=== PATIENT | female | born 1970 ===

== ENCOUNTER 2017-04-28 15:06 | Emergency (ER) | payer SELFPAY ==
[2017-04-28 15:18] VITALS: BP 130/77; PULSE 71; RESP 17; TEMP 96.7; O2SAT 100
--- NOTE | 2017-04-28 16:45 | ED PDOC ---
HPI: Back Time Seen by Provider: 04/28/17 16:15 Chief Complaint (Nursing): Back Pain Chief Complaint (Provider): back pain History Per: Patient History/Exam Limitations: no limitations Additional Complaint(s): 47yo F in ED for eval of lower back pain x 4days states she developed back pain with mild radiation to LE. negative for: nausea/vomiting, fever, chills, abd pain, dysuria, hemturia, constipation, blood in fecal matter, MCCRAY, or abd pain. Pt admits to hx of similar in the past-state that she sustained initial injury after living Past Medical History Reviewed: Historical Data, Nursing Documentation, Vital Signs Vital Signs: Last Vital Signs Temp 96.7 F L 04/28/17 15:15 Pulse 71 04/28/17 15:15 Resp 17 04/28/17 15:15 BP 130/77 04/28/17 15:15 Pulse Ox 100 04/28/17 15:15 - Medical History PMH: No Chronic Diseases Denies: Hyperlipidemia - Family History Family History: States: Unknown Family Hx - Immunization History Hx Tetanus Toxoid Vaccination: No Hx Influenza Vaccination: No Hx Pneumococcal Vaccination: No - Home Medications Home Medications: Ambulatory Orders Medication Instructions Recorded Famotidine [Pepcid] 20 mg PO DAILY #5 tab 11/25/16 predniSONE [predniSONE Tab] 20 mg PO DAILY #12 tab 11/25/16 Cyclobenzaprine [Cyclobenzaprine 10 mg PO BID #14 tab 04/28/17 HCl] Naproxen [Naprosyn] 500 mg PO BID #30 tab 04/28/17 - Allergies Allergies/Adverse Reactions: Allergies Allergy/AdvReac Type Severity Reaction Status Date / Time ketorolac tromethamine Allergy RASH Verified 11/25/16 21:39 [From Toradol] cream cheese AdvReac RASH Uncoded 11/25/16 21:38 Review of Systems ROS Statement: Except As Marked, All Systems Reviewed And Found Negative Constitutional: Negative for: Fever, Chills Gastrointestinal: Negative for: Nausea, Vomiting, Abdominal Pain Musculoskeletal: Positive for: Back Pain Physical Exam - Reviewed Nursing Documentation Reviewed: Yes Vital Signs Reviewed: Yes - Physical Exam Appears: Positive for: Well, Non-toxic, No Acute Distress Head Exam: Positive for: ATRAUMATIC, NORMAL INSPECTION, NORMOCEPHALIC Skin: Positive for: Normal Color, Warm, DRY Cardiovascular/Chest: Positive for: Regular Rate, Rhythm Respiratory: Positive for: CNT, Normal Breath Sounds Gastrointestinal/Abdominal: Positive for: Normal Exam, Bowel Sounds, Soft. Negative for: Tenderness Back: Positive for: Vertebral Tenderness, Decreased ROM, Muscle Spasm. Negative for: L CVA Tenderness, R CVA Tenderness Extremity: Positive for: Normal ROM Neurologic/Psych: Positive for: Alert, Oriented - ECG O2 Sat by Pulse Oximetry: 100 - Progress ED Course And Treament: PT opts for Rx for pain control. Medical Decision Making Medical Decision Making: pt will be d/c Rx for naproxen and felxril for chornic pain exacerbation. advised to f/u with pmd stable VS and well appearing upon d.c Disposition - Clinical Impression Clinical Impression: Low back pain - Patient ED Disposition Is Patient to be Admitted: No Counseled Patient/Family Regarding: Diagnosis, Need For Followup, Rx Given - Disposition Referrals: [facility] [Outside] Disposition: Routine/Home Disposition Time: 16:44 Condition: STABLE Prescriptions: Cyclobenzaprine [Cyclobenzaprine HCl] 10 mg PO BID #14 tab Naproxen [Naprosyn] 500 mg PO BID #30 tab Instructions: Acute Low Back Pain (ED), Chronic Back Pain (ED), Back Exercises (ED) Forms: [facility] ED School/Work Excuse Print Language: BHUTANESE
== END 2017-04-28 17:00 | disposition home or self-care (01) ==
LOC: H.ER 15:06
DX: M54.5 Low back pain (principal)